=== PATIENT | female | born 1945 | race Caucasian/White ===

== ENCOUNTER → 2017-08-29 05:00 | Outpatient (REF) | payer SELFPAY ==
[2017-08-29 07:51] LABS: Absolute Lymphocyte Count 0.96 X10^3/ul (0.83-4.51); Absolute Neutrophil Count 2.8 X10^3/uL (2.0-7.7); Basophil# 0.01 X10^3/uL; Basophil% 0.2 % (0-1); Eosinophil# 0.14 X10^3/uL; Hematocrit 26.8 % (37-47); Hemoglobin 8.6 g/dl (12.0-15.0); Lymphocyte # 0.96 X10^3/ul (4.0); Lymphocyte % 20.8 % (19-41); Mean Corp Hgb Conc 32.1 g/gl (32-36); Mean Corpuscular Hgb 28.5 pg (27.0-32.0); Mean Corpuscular Volume 88.7 fL (81-99); Mean Platelet Vol. 9.3 fl (6.2-12.0); Monocyte# 0.66 X10^3/uL; Monocyte% 14.3 % (0-10); Neutrophil # 2.84 X10^3/uL (2.7-7.7); Neutrophil % 61.5 % (47-70); Platelet Count 219 K/mm3 (150-450); RBC Distribution Width CV 13.5 % (11.6-14.6); RBC Distribution Width SD 41.9 fl (35.1-43.9); Red Blood Count 3.02 M/mm3 (4.2-5.4); White Blood Count 4.6 K/mm3 (4.4-11.0)
[2017-08-29 07:58] LABS: ALB/GLOB Ratio 0.7 RATIO (0.9-2.4); AST(SGOT) 13 U/L (15-37); Alanine Aminotransfer ALT/SGPT 21 U/L (13-56); Albumin, Serum 2.8 g/dL (3.2-5.0); Alkaline Phosphatase 45 U/L (45-117); Anion Gap 7 (5-15); BUN 14 mg/dL (7-18); BUN/Creat Ratio 36.1 RATIO (10-20); Calcium,Total 8.8 mg/dL (8.5-10.1); Chloride 104 mmol/L (98-107); Creatinine, Serum 0.39 mg/dL (0.55-1.02); EST Glomerular Filtration Rate 172 mL/min (>60); Est Glom Filt Rate - Afr Amer 208 mL/min (>60); Globulin 3.8 g/dL (2.2-4.2); Glucose 92 mg/dL (70-110); Protein, Total 6.6 g/dL (6.4-8.2); Sodium Level 139 mmol/L (136-145)
[2017-08-29 07:59] LABS: POSITIVE COUNT NO; POSITIVE DIFFERENTIAL NO; POSITIVE MORPHOLOGY NO
[2017-08-29 08:11] LABS: Erythrocyte Sedimentation Rate 40 mm/hr (0-30)
[2017-08-29 12:01] LABS: Vancomycin, Trough Level 11.7 ug/mL (5.0-15.0)
== END ==
LOC: OLS.ACH 05:00
PROVIDERS: Visit Provider Family Medicine
DX: T84.54XD Infection and inflammatory reaction due to internal left knee prosthesis, subsequent encounter (principal)
CPT/HCPCS: 36415; 80053; 80202; 85025; 85652; 86140

== ENCOUNTER → 2017-09-05 05:00 | Outpatient (REF) | payer SELFPAY ==
[2017-09-05 07:58] LABS: Absolute Lymphocyte Count 1.26 X10^3/ul (0.83-4.51); Absolute Neutrophil Count 2.8 X10^3/uL (2.0-7.7); Basophil# 0.02 X10^3/uL; Basophil% 0.4 % (0-1); Eosinophil# 0.21 X10^3/uL; Eosinophils% 4.3 % (0-5); Hematocrit 27.2 % (37-47); Hemoglobin 8.6 g/dl (12.0-15.0); Lymphocyte # 1.26 X10^3/ul (4.0); Lymphocyte % 25.7 % (19-41); Mean Corp Hgb Conc 31.6 g/gl (32-36); Mean Corpuscular Hgb 28.5 pg (27.0-32.0); Mean Corpuscular Volume 90.1 fL (81-99); Monocyte# 0.58 X10^3/uL; Monocyte% 11.8 % (0-10); Neutrophil # 2.82 X10^3/uL (2.7-7.7); Neutrophil % 57.4 % (47-70); Platelet Count 349 K/mm3 (150-450); RBC Distribution Width SD 43.6 fl (35.1-43.9); Red Blood Count 3.02 M/mm3 (4.2-5.4); White Blood Count 4.9 K/mm3 (4.4-11.0)
[2017-09-05 08:03] LABS: POSITIVE COUNT NO; POSITIVE DIFFERENTIAL NO; POSITIVE MORPHOLOGY NO
[2017-09-05 08:06] LABS: Erythrocyte Sedimentation Rate 31 mm/hr (0-30)
[2017-09-05 08:14] LABS: ALB/GLOB Ratio 0.8 RATIO (0.9-2.4); AST(SGOT) 25 U/L (15-37); Alanine Aminotransfer ALT/SGPT 31 U/L (13-56); Albumin, Serum 3.1 g/dL (3.2-5.0); Alkaline Phosphatase 57 U/L (45-117); Anion Gap 8 (5-15); BUN 13 mg/dL (7-18); BUN/Creat Ratio 32.5 RATIO (10-20); Calcium,Total 8.6 mg/dL (8.5-10.1); Chloride 104 mmol/L (98-107); EST Glomerular Filtration Rate 166 mL/min (>60); Est Glom Filt Rate - Afr Amer 201 mL/min (>60); Ferritin 51 ng/mL (8-252); Globulin 3.9 g/dL (2.2-4.2); Glucose 77 mg/dL (74-106); Iron 39 ug/dL (50-170); Iron Binding Capacity,Total 299 ug/dL (250-450); Potassium 4.1 mmol/L (3.5-5.1); Sodium Level 139 mmol/L (136-145); Thyroid Stim Hormone (TSH) 4.06 uIU/mL (0.358-3.74)
[2017-09-05 08:23] LABS: Hemoglobin A1c 4.8 % (4.2-6.3)
[2017-09-05 11:20] LABS: Vancomycin, Trough Level 15.5 ug/mL (5.0-15.0)
[2017-09-05 16:09] LABS: Prealbumin 21.5 mg/dL (20.0-40.0)
== END ==
LOC: OLS.ACH 05:00
PROVIDERS: Visit Provider Family Medicine
DX: T84.54XD Infection and inflammatory reaction due to internal left knee prosthesis, subsequent encounter (principal); D64.9 Anemia, unspecified; E03.9 Hypothyroidism, unspecified; E11.22 Type 2 diabetes mellitus with diabetic chronic kidney disease; N18.9 Chronic kidney disease, unspecified
CPT/HCPCS: 36415; 80053; 80202; 82728; 83036; 83540; 83550; 84134; 84443; 85025; 85652

== ENCOUNTER → 2017-09-12 05:00 | Outpatient (REF) | payer SELFPAY ==
[2017-09-12 08:34] LABS: Absolute Lymphocyte Count 1.42 X10^3/ul (0.83-4.51); Absolute Neutrophil Count 2.4 X10^3/uL (2.0-7.7); Basophil# 0.01 X10^3/uL; Basophil% 0.2 % (0-1); Eosinophil# 0.19 X10^3/uL; Eosinophils% 4.2 % (0-5); Lymphocyte # 1.42 X10^3/ul (4.0); Lymphocyte % 31.7 % (19-41); Mean Corp Hgb Conc 31.3 g/gl (32-36); Mean Corpuscular Hgb 27.9 pg (27.0-32.0); Mean Corpuscular Volume 89.4 fL (81-99); Monocyte# 0.46 X10^3/uL; Monocyte% 10.3 % (0-10); Neutrophil # 2.39 X10^3/uL (2.7-7.7); Neutrophil % 53.4 % (47-70); Platelet Count 323 K/mm3 (150-450); RBC Distribution Width CV 14.4 % (11.6-14.6); RBC Distribution Width SD 46.9 fl (35.1-43.9); Red Blood Count 3.58 M/mm3 (4.2-5.4); White Blood Count 4.5 K/mm3 (4.4-11.0)
[2017-09-12 08:48] LABS: POSITIVE COUNT NO; POSITIVE DIFFERENTIAL NO; POSITIVE MORPHOLOGY NO
[2017-09-12 08:55] LABS: Erythrocyte Sedimentation Rate 39 mm/hr (0-30)
[2017-09-12 09:24] LABS: AST(SGOT) 11 U/L (15-37); Alanine Aminotransfer ALT/SGPT 27 U/L (13-56); Albumin, Serum 3.5 g/dL (3.2-5.0); Alkaline Phosphatase 67 U/L (45-117); Anion Gap 9 (5-15); BUN 19 mg/dL (7-18); BUN/Creat Ratio 45.8 RATIO (10-20); CRP < 2.90 mg/L (0.0-3.0); Calcium,Total 9.1 mg/dL (8.5-10.1); Chloride 105 mmol/L (98-107); Creatinine, Serum 0.42 mg/dL (0.55-1.02); EST Glomerular Filtration Rate 159 mL/min (>60); Est Glom Filt Rate - Afr Amer 192 mL/min (>60); Globulin 3.4 g/dL (2.2-4.2); Glucose 76 mg/dL (74-106); Potassium 4.4 mmol/L (3.5-5.1); Protein, Total 6.9 g/dL (6.4-8.2); Sodium Level 140 mmol/L (136-145)
== END ==
LOC: OLS.ACH 05:00
PROVIDERS: Visit Provider Family Medicine
DX: T84.54XD Infection and inflammatory reaction due to internal left knee prosthesis, subsequent encounter (principal)
CPT/HCPCS: 36415; 80053; 80202; 85025; 85652; 86140

== ENCOUNTER → 2021-12-16 | Outpatient (CLI) | payer SELFPAY ==
--- NOTE | 2021-12-16 13:45 | PET_ITS ---
PROCEDURE: WHOLE BODY PET/CT SCAN, MID SKULL TO MID THIGH REASON FOR EXAM: Left perihilar mass/consolidation with left lower lobe bronchial narrowing on prior CT. COMPARISON EXAMINATION: Report of chest CT 02/15/2021 (images not available). TECHNIQUE: Following the intravenous administration of 12.0 mCi of F-18 FDG, multiplanar imaging acquisitions of the neck, chest, abdomen/pelvis to the mid thigh, obtained at 1 hour post radiopharmaceutical administration. Interpretation is with co-registeration of similar anatomic distribution of CT. Findings: Normal and physiologic distribution of radioisotope identified in the expected intensity of the hepatic and splenic parenchyma, urinary tract and gastrointestinal structures. There is gross anatomic distribution of the intracranial contents. Degenerative and posttraumatic activity of the right shoulder. INDEX LESION SIZE SUV INTERPRETATION: 1. There is localized consolidation of the medial left lower lobe abutting the descending thoracic aorta on image 168 of series 201 without significant FDG activity (SUV 2.4). CT portion of the exam: Right jugular chest port present with tip extending to the lower SVC. Surgical clips in the bilateral axilla. The lungs are normal. There is no demonstrated pleural abnormality. Normal heart and pericardium. Normal mediastinum. Normal hilar regions. Normal unenhanced pulmonary arteries. There is atherosclerotic calcification of the aortic arch with tortuosity and elongation of the aortic arch and descending thoracic aorta. Normal liver. There is non-visualization of the gallbladder, which may be secondary to either contraction or a prior cholecystectomy. Normal spleen. Normal pancreas. Normal bilateral adrenal glands. Normal right kidney. Normal left kidney. Normal visualized stomach. Normal small intestine. There are multiple colonic diverticula consistent with diverticulosis. The appendix is visualized and appears normal. There is diffuse atherosclerotic calcification of the abdominal aorta, without a demonstrated aneurysm. Normal inferior vena cava. Normal urinary bladder. Operative changes of the lumbar spine with fusion hardware. Chronic unhealed fracture of the right humeral neck. Operative changes of the proximal right femur. PET/PET/CT Tumor Base -Thigh Init IMPRESSION: 1. Medial left lower lobe consolidation with minimal FDG activity more compatible with chronic infection/atelectasis rather than neoplasm. Comparison to prior chest CT images recommended. Recommend follow-up chest CT in 3 months to document morphologic stability. 2. Chronic changes, as detailed above. Electronically Signed: Herve Mckeon MD ([facility]) at 16:43 EDT Reading Location ID and State: / ID , Service support ,
== END | disposition home or self-care (01) ==
PROVIDERS: PCP Nurse Practitioner Family; Referring Provider Internal Medicine Critical Care Medicine; Visit Provider Internal Medicine Critical Care Medicine
DX: R93.89 Abnormal findings on diagnostic imaging of other specified body structures (principal)
CPT/HCPCS: 78815; A9552

== ENCOUNTER → 2022-10-27 | Outpatient (CLI) | payer SELFPAY, OTHER ==
--- NOTE | 2022-10-27 13:41 | CT_ITS ---
STUDY: CT CHEST WITHOUT CONTRAST REASON FOR EXAM: Female, 77 years old. follow lung nodules. History of breast cancer and pharyngeal myosarcoma. RADIATION DOSAGE (If Supplied By Facility): CTDIvol = ( 17.99 ) mGy, DLP = ( 620.30 ) mGycm TECHNIQUE: Transaxial imaging was performed without the administration of intravenous contrast material. Multiplanar coronal and sagittal images were reformatted. Individualized dose optimization techniques were used for this CT. COMPARISON: No relevant priors. FINDINGS: CHEST A right-sided Port-A-Cath is seen with the tip in the superior vena cava. Surgical clips are seen in the left axillary region. The patient is status post bilateral mastectomy. Mild increased markings at the right lung base suggestive of scarring. There is a 5.9 mm noncalcified nodule in the anterior aspect of the left lower lobe as seen on axial image #70. There is no demonstrated pleural abnormality. There are calcifications of the coronary arteries. Calcification of the mitral valve annulus. Normal mediastinum. Normal hilar regions. Normal unenhanced pulmonary arteries. Normal aorta arch and descending thoracic aorta. There is demineralization of the thoracic spine. There is no demonstrated abnormality of the visualized upper abdomen. CT/Chest without Contrast IMPRESSION: 5.9 mm noncalcified nodule in the left lower lobe as described with mild scarring. Electronically Signed: Yrn Marie MD at 14:52 EDT ,
== END | disposition home or self-care (01) ==
PROVIDERS: PCP Nurse Practitioner Family; Referring Provider Nurse Practitioner Acute Care; Visit Provider Nurse Practitioner Acute Care
DX: R93.89 Abnormal findings on diagnostic imaging of other specified body structures (principal)
CPT/HCPCS: 71250

== ENCOUNTER → 2023-01-27 | Outpatient (CLI) | payer SELFPAY, OTHER ==
--- NOTE | 2023-01-27 13:06 | MRI_ITS ---
STUDY: MRI LUMBAR SPINE WITHOUT CONTRAST REASON FOR EXAM: Female, 77 years old. RADICULOPATHY HX OF SX L-5 S-1 IN 2015 TECHNIQUE: Standardized fat and water weighted pulse sequences were obtained in the sagittal and axial planes. Pre and postcontrast images obtained. Contrast: 23 mL Clariscan COMPARISON: 02/15/2017 FINDINGS: Vertebral bodies and alignment. 1. Vertebral body height and alignment are unchanged. Redemonstration of postoperative changes of pedicle screw posterior fixation at L5-S1. Laminectomy defects are noted. 2. Interval deformity the inferior endplate of L3 consistent with moderate Schmorl''s node. This has developed in the interval. Mild progression of degenerative endplate changes involving superior endplate of T11 and T12. 3. No evidence of marrow edema or occult fracture. 4. Paraspinous soft tissue planes have normal appearance. Normal appearance of the muscular fascial planes of the erector spinae. 5. Normal appearance of the sacrum and sacroiliac joints. 6. Moderate sized LEFT renal cyst. Intervertebral disks levels. T12-L1: Mild disc desiccation, no disc herniation or canal stenosis. Moderate Schmorl''s node involving the superior endplate of L1. L1-2: Facet arthropathy, no evidence of disc herniation or canal stenosis. Minimal disc bulge. Neural foramina appear widely patent. L2-3: Disc desiccation, broad-based posterior disc bulge, facet and ligamentum flavum hypertrophic changes. There appear to be postop changes of remote LEFT laminectomy. No canal stenosis, however there is crowding of nerve roots lateral recesses due to facet arthropathy. There is moderate LEFT foraminal narrowing without nerve root impingement. L3-4: Disc desiccation, broad-based disc protrusion with deformity the anterior epidural space at, interval development of Schmorl''s node involving the inferior endplate of L3. Laminectomy defects are present. Broad-based disc bulge/protrusion and facet hypertrophic changes contribute to compression of nerve roots lateral recesses and significant bilateral foraminal stenosis with bilateral L3 nerve root impingement. L4-5: Disc desiccation, facet arthropathy and postoperative changes with metal artifact from pedicle screw fixation at L5. No canal stenosis. Neural foramina appear patent. L5-S1: Pedicle screw posterior fixation, laminectomy defect noted. No evidence of canal or foraminal stenosis. Spinal cord: Normal appearance of the spinal cord and conus. Conus is located at L1. Cauda equina has normal appearance. No evidence of cord compression or edema. No intramedullary signal abnormality noted. MRI/Spine Lumbar W/WO Contrast IMPRESSION: 1. Redemonstration of pedicle screw posterior fixation and laminectomy defects at L5-S1. 2. Broad-based disc protrusion at L3-4, facet and ligament flavum hypertrophic changes are present contributing to crowding/impingement of nerve roots in the lateral recesses greater on LEFT than RIGHT, additional bilateral foraminal stenosis with bilateral L3 nerve root impingement. 3. Interval development of Schmorl''s node along the inferior endplate of L3. 4. Mild spondylosis and facet arthrosis at remaining levels as described in detail above. 5. Visualized cord and conus show no evidence of compression or abnormal signal. 6. No evidence of fractures or destructive bony process or hardware failure. Electronically Signed: Jimi Pickard MD at 22:29 EDT ,
[2023-01-27 13:39] LABS: CREATININE FINGERSTICK < 0.9 mg/dL (0.55-1.02); EGFR FINGERSTICK > 60.0000 mL/min (>60)
[2023-01-27] MEDS: 0.9% Saline Lock 10 ML Syringe IV (14:05)
== END | disposition home or self-care (01) ==
PROVIDERS: PCP Nurse Practitioner Family; Referring Provider Orthopaedic Surgery Orthopaedic Surgery of the Spine; Visit Provider Orthopaedic Surgery Orthopaedic Surgery of the Spine
DX: M54.17 Radiculopathy, lumbosacral region (principal)
CPT/HCPCS: 72158; A9575; A4216

== ENCOUNTER → 2024-06-19 05:00 | Outpatient (REF) | payer MEDICARE, SELFPAY ==
[2024-06-19 07:54] LABS: Ferritin 278 ng/mL (8-252); Iron 38 ug/dL (50-170); Iron Binding Capacity,Total 251 ug/dL (250-450)
[2024-06-19 08:03] LABS: Vitamin B12 692 pg/mL (211-911)
== END ==
LOC: OLS.ACH 05:00
PROVIDERS: PCP Nurse Practitioner Family; Visit Provider Internal Medicine
DX: D64.9 Anemia, unspecified (principal); I11.9 Hypertensive heart disease without heart failure; E05.90 Thyrotoxicosis, unspecified without thyrotoxic crisis or storm
CPT/HCPCS: 36415; 82607; 82728; 82746; 83540; 83550